=== PATIENT | male | born 1960 | race Caucasian/White ===

== ENCOUNTER 2018-12-28 05:30 | Outpatient (CLI) | payer OTHER ==
[~2018-12-28] VITALS: Ht 188 cm; Wt 117.9 kg
[2018-12-28] MEDS ORDERED: ZOLP10TA5 PO (10:48)
[2018-12-28] MEDS ORDERED: DOXY100T2 PO (10:48)
[2018-12-28] MEDS ORDERED: HYDR-3812 PO (10:51)
[2018-12-28] MEDS ORDERED: FLUO20CA42 PO (11:47)
[2018-12-28] MEDS ORDERED: BUSP10TA95 PO (11:47)
[2018-12-28] MEDS ORDERED: GABA-488 PO ×3 (11:47→14:08)
[2018-12-28] MEDS ORDERED: ATEN50TA PO (11:47)
[2018-12-28] MEDS ORDERED: OMEP20CA12 PO (11:47)
[2018-12-28] MEDS ORDERED: TAMS0.4C98 PO (11:47)
[2018-12-28] MEDS ORDERED: FLUT16SP22 NS (11:47)
[2018-12-28] MEDS ORDERED: PRAV40TA2 PO (11:47)
[2018-12-28] MEDS ORDERED: GBPN600T PO (11:47)
[2018-12-28] MEDS ORDERED: FENO135C4 PO (11:47)
[2018-12-28] MEDS ORDERED: LISI-552 PO (11:47)
[2018-12-28] MEDS ORDERED: CYAN10006 PO (13:46)
[2018-12-28] MEDS ORDERED: MULT1TAB69 PO (13:46)
[2018-12-28] MEDS ORDERED: CHOL10007 PO (13:46)
[2018-12-28] MEDS ORDERED: UBID1CAP53 PO (13:46)
[2018-12-28] MEDS ORDERED: LOPE-134 PO (14:08)
[2018-12-28] MEDS ORDERED: METR45CR2 TP (14:08)
[2018-12-28] MEDS ORDERED: MELA5CAP PO (14:08)
[2018-12-28] MEDS ORDERED: NAPR220T66 PO (14:08)
== END 2018-12-28 12:44 | disposition home or self-care (01) ==
LOC: PREOP 05:30
PROVIDERS: ATTEND Orthopaedic Surgery
DX: Z01.818 Encounter for other preprocedural examination (principal)

== ENCOUNTER 2019-01-01 08:15 | Day surgery (SDC) | payer OTHER ==
--- NOTE | 2018-12-28 14:20 | NUR ---
PREOP NURSE CALLED LOCAL PHARMACIES AND ENTERED THE DOXYCYCLINE, HYDROCODONE, AND AMBIEN SCRIPTS. I CALLED [facility] CLARKE[facility]S OFFICE IN [place] FOR A LIST OF MEDICATIONS. I CALLED THE PATIENT AND WENT OVER THESE LISTS AND HE VERIFIED HOW HE TAKES THEM. [facility] FILLED: 12-17-18 FLOMAX 0.4MG DAILY 12-10-18 FENOFIBRIC ACID 135MG DAILY 11-14-18 LISINOPRIL 20MG BID #180 11-14-18 PRAVASTATIN 40MG DAILY #90 11-14-18 ATENOLOL 50MG BID 11-10-18 FLUOXETINE 20MG 3 DAILY 11-10-18 FLONASE NASAL SPRAY 1 SPRAY NS DAILY 11-03-18 BUSPIRONE 10MG TID 10-31-18 OMEPRAZOLE 20MG DAILY 08-03-18 GABAPENTIN 300MG 2 TID (TAKES 1AM, 2 NOON, 3 HS) 08-03-18 GABAPENTIN 600MG BID (DOES NOT TAKE WAS TOO HARD ON HIS STOMACH) HE ALSO STATES HE IS USING [employer] PRN FOR ROSACEA. HE TAKES THE FOLLOWING OTC: VITAMIN D CO Q 10 B12 MTV ALEVE PRN LOPERAMIDE PRN MELATONIN HS
[~2019-01-01] VITALS: Ht 188 cm; Wt 117.9 kg
[~2019-01-01 08:15] MED LIST: ATEN50TA PO; BUSP10TA95 PO; CHOL10007 PO; CYAN10006 PO; DOXY100T2 PO; FENO135C4 PO; FLUO20CA42 PO; FLUT16SP22 NS; GABA-488 PO; GBPN600T PO; HYDR-3812 PO; LISI-552 PO; LOPE-134 PO; MELA5CAP PO; METR45CR2 TP; MULT1TAB69 PO; NAPR220T66 PO; OMEP20CA12 PO; PRAV40TA2 PO; TAMS0.4C98 PO; UBID1CAP53 PO; ZOLP10TA5 PO
[2019-01-01 08:20] VITALS: BP 133/116
[2019-01-01] MEDS ORDERED: ceFAZolin 2 GM IV Premixed 50 ML IV ONE (08:30)
[2019-01-01] MEDS: LACTATED RINGERS 1,000 ML IV PRN ×2 (08:30→11:14)
[2019-01-01] MEDS ORDERED: BACITRACIN 100,000 UNIT/NS 1000 ML POUR BOTTLE IR ONE ×2 (08:45)
[2019-01-01] MEDS ORDERED: BUP/EPI 0.5% 1:200,000 (SENSORCAINE) 30 ML VIAL ONE (08:54)
[2019-01-01] MEDS ORDERED: VANCOMYCIN 1000 MG/VIAL ONE (08:54)
[2019-01-01] MEDS ORDERED: fentaNYL INJECTION 100 MCG/2 ML AMP ONE (09:15)
[2019-01-01] MEDS ORDERED: LIDOCAINE PF 2% 5 ML (XYLOCAINE) VIAL ONE (09:15)
[2019-01-01] MEDS ORDERED: ONDANSETRON 4 MG/2 ML (SDV) Z0FRAN ONE (09:15)
[2019-01-01] MEDS ORDERED: proPOfol 200 MG/20 ML (DIPRIVAN) VIAL IV ONE (09:15)
[2019-01-01] MEDS ORDERED: ROCURONIUM 10 MG/ML 5 ML SYRINGE IV ONE (09:15)
[2019-01-01] MEDS ORDERED: SUCCINYLCHOLINE INJ 100 MG/5 ML SYR ONE (09:15)
[2019-01-01] MEDS ORDERED: MIDAZOLAM 2 MG/2 ML (VERSED) VIAL ONE (09:16)
[2019-01-01] MEDS ORDERED: SEVOFLURANE (ULTANE) 15 ML INHAL SOLN ONE ×2 (11:06→11:25)
--- NOTE | 2019-01-01 11:25 | Diagnostic Imaging Report ---
INDICATION: Spinal cord stimulator placement. COMPARISON: None Total fluoro time: 15.2 seconds Total number of fluoroscopic images saved: 1 FINDINGS: Single intraoperative image intensifier view of the thoracic spine was obtained during cord stimulator placement. Image provided shows stimulator lead projecting over the thoracic spine. Exact location is indeterminate based on this exam secondary to coned-down nature of the image. Surgical retractors are also present. Please note, interpreting radiologist was not present during the procedure. IMPRESSION: 1. Fluoroscopic guidance provided during spinal cord stimulator placement as above. Dictated by: Dictated on workstation # [id number]
[2019-01-01] MEDS ORDERED: OXYC1TAB87 PO (11:29)
--- NOTE | 2019-01-01 11:30 | Discharge Inst-Simple/Standard ---
Discharge Inst-Standard Discharge Medications New, Converted or Re-Newed RX: RX on Chart Patient Instructions/Follow Up Plan of Care/Instructions/FU: follow up 2 weeks in clinic dont bend lift twist push pull or reach 5lb weight restriction keep incision covered clean and dry Activity as Tolerated: No Discharge Diet: Regular Diet Return to [facility] For: fever chills shortness of breath chest pain new onset weakness or numbness VAMSHI GANDHI Jan 01, 2019 11:30
[2019-01-01] MEDS ORDERED: morphine INJ 10 MG/ML 1ML (SYR OR VIAL) ONE (11:42)
[2019-01-01] MEDS: morphine INJ 10 MG/ML 1ML (SYR OR VIAL) IVP ONE (11:42)
[2019-01-01] MEDS ORDERED: ONDANSETRON 4 MG/2 ML (SDV) Z0FRAN IVP PRN (11:45)
[2019-01-01] MEDS ORDERED: MEPERIDINE (DEMEROL) INJ 50 MG/ML IVP ONE (11:45)
[2019-01-01] MEDS ORDERED: MEPERIDINE (DEMEROL) INJ 50 MG/ML ONE (12:02)
[2019-01-01 12:45] VITALS: BP 154/98
[2019-01-01] MEDS ORDERED: oxyCODONE/APAP 5/325MG (PERCOCET 5) TABLET ONE (13:13)
--- NOTE | 2019-01-01 13:14 | Anesthesia-General Post-Op ---
General Patient Condition Mental Status/LOC: Same as Preop Cardiovascular: Satisfactory Nausea/Vomiting: Absent Respiratory: Satisfactory Pain: Controlled Complications: Absent Post Op Complications Complications None Follow Up Care/Instructions Patient Instructions None needed. Anesthesia/Patient Condition Patient Condition Patient is doing well, no complaints, stable vital signs, no apparent adverse anesthesia problems. No complications reported per nursing. DAVE LI CRNA Jan 01, 2019 13:14
[2019-01-01] MEDS ORDERED: oxyCODONE/APAP 5/325MG (PERCOCET 5) TABLET PO PRN (13:15)
[2019-01-01 13:17] VITALS: BP 123/95
--- NOTE | 2019-01-01 13:17 | NUR ---
PERCOCET 5/325 MG, ONE TAB, GIVEN PO FOR C/O INCREASING LOW BACK PAIN RATED NOW AT 5.
[2019-01-01 13:45] VITALS: BP 149/88
--- NOTE | 2019-01-01 14:00 | NUR ---
LOW BACK PAIN NOW RATED 2-3. HAS BEEN UP WITH ASSIST TO BR, GAIT STEADY, VOIDED WITHOUT PROBLEM AND BACK TO ROOM FOR DISMISSAL. DRESSINGS REMAIN D/I TO MID AND LOW BACK SURGICAL SITES. HAS BEEN USING ICE PACKS ON AND OFF TO SITES.
[2019-01-01 14:11] VITALS: BP 149/88
--- NOTE | 2019-01-02 08:12 | OPERATIVE REPORT ---
DATE OF SERVICE: 01/01/2019 SURGEON: Hemant Bhakta DO AUTO SERVICE ADVISOR: M[place]. This is a medically necessary procedure. Assistance was necessary to retract her vital neurovascular structures. Without an surgical dental assistant, the procedure would not be possible. PREOPERATIVE DIAGNOSES: 1. Lumbar radiculopathy. 2. Chronic pain syndrome. 3. Neuropathic pain syndrome. POSTOPERATIVE DIAGNOSES: 1. Lumbar radiculopathy. 2. Chronic pain syndrome. 3. Neuropathic pain syndrome. PROCEDURES PERFORMED: 1. Placement of thoracic spinal cord stimulator paddle lead via thoracic laminotomies. 2. Placement of pulse generator. 3. Complex programming. COMPLICATIONS: None. DRAINS PLACED: None. ESTIMATED BLOOD LOSS: Minimal. SPECIMEN SENT: None. ANESTHESIA: General endotracheal tube anesthesia with local anesthetic. HISTORY OF PRESENT ILLNESS: The patient is a very pleasant 58-year-old gentleman, who presented to me with a severe chronic neuropathic pain. He did have a percutaneous trial by a pain physician in which he obtained significant pain relief. He wished to proceed with placement of a permanent stimulator. DESCRIPTION OF PROCEDURE: The patient was identified by name on by wristband in the preoperative holding area. His operative site was signed and consent was signed. SCDs were placed. Neuromonitoring set up and antibiotics were started. He was taken to the operating room theater and placed under general endotracheal tube anesthesia and then transferred to the operating table in the prone position. He was prepped and draped in the usual sterile fashion. Formal timeout was conducted. AP and lateral x-rays were then brought in and I marked out the thoracic levels. I then infiltrated the skin and soft tissue with 0.5% Marcaine with epinephrine. I made a midline thoracic incision and performed bilateral subperiosteal paraspinal muscular approach. I used a high speed bur, Kerrison rongeur and Leksell rongeur to perform a laminotomy and gained access to the epidural space. I then obtained a Medtronic paddle lead and I passed this lead in the midline position over the target vertebra behind the body of T9. I performed complex programming at this point communicating with the [facility] [facility] rep and the neuro library cataloging technician, we were able to map out the stimulation and ensured equal left and right lower extremity stimulation. At this point, I was happy with the position of the lead, so I anchored it into the thoracic fascia. I then made an incision over the left flank, performed dissection to give me a pocket for the pulse generator. I used a tunneler to pass the leads from the thoracic wound to the lumbar wound. I hooked up a Medtronic pulse generator, final tightened it and I buried it into the pocket. At this point, I maintained hemostasis. I irrigated the wounds thoroughly with antibiotic enhanced irrigation and I closed the wounds utilizing 0 Vicryl followed by 2-0 Vicryl followed by running 3-0 subcuticular stitches. I applied dressings and took the patient in the supine position to the PACU where he awoke without incident. He tolerated the procedure well. The plan at this time is to discharge the patient today. I will see him back in two weeks and he knows to avoid any bending, twisting, pushing or pulling. Please note that the instrumentation utilized was Medtronic and that neuro monitoring was stable throughout the procedure. Job ID: [id number] DocumentID: [id number] Dictated Date: 01/02/2019 07:28:32 Audio Visual Engineer Date: 01/02/2019 08:12:02 Dictated By: HEMANT BHAKTA DO
== END 2019-01-01 14:11 | disposition home or self-care (01) ==
LOC: SDC 08:15
PROVIDERS: ATTEND Orthopaedic Surgery
DX: M54.16 Radiculopathy, lumbar region (principal); G89.4 Chronic pain syndrome; Z11.2 Encounter for screening for other bacterial diseases; I10 Essential (primary) hypertension; K21.9 Gastro-esophageal reflux disease without esophagitis; F32.9 Major depressive disorder, single episode, unspecified; Z79.899 Other long term (current) drug therapy
CPT/HCPCS: 87081